=== PATIENT | male | born 1985 | race Caucasian/White ===

== ENCOUNTER 2016-05-24 14:54 | Emergency (ER) | payer OTHER ==
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
[2016-05-24 17:06] VITALS: BP 120/93
== END 2016-05-24 17:06 | disposition home or self-care (01) ==
LOC: ER 14:54
DX: M54.89 Other dorsalgia (principal); M54.2 Cervicalgia; V49.60XA Unspecified car occupant injured in collision with unspecified motor vehicles in traffic accident, initial encounter; F17.210 Nicotine dependence, cigarettes, uncomplicated; Z86.14 Personal history of Methicillin resistant Staphylococcus aureus infection; Z21 Asymptomatic human immunodeficiency virus [HIV] infection status; Z88.0 Allergy status to penicillin
CPT/HCPCS: 99283

== ENCOUNTER 2016-06-10 17:18 | Emergency (ER) | payer OTHER ==
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
[2016-06-10] MEDS ORDERED: NORMAL SALINE 1000 ML 1,000 ML IV ONE (17:40)
[2016-06-10] MEDS ORDERED: ONDANSETRON HCL INJ/PF 4 MG/2 ML SDV IV ONE (17:48)
[2016-06-10] MEDS ORDERED: HYDROMORPHONE HCL INJ/PF 2 MG/ML AMPULE IV ONE (17:48)
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
[2016-06-10 18:10] LABS: ABSOLUTE BASOPHILS # (AUTO) 0.1 10^3/uL (0.0-0.2); ABSOLUTE EOSINOPHILS # (AUTO) 0.1 10^3/uL (0.0-0.6); ABSOLUTE LYMPHOCYTES (AUTO) 1.3 10^3/uL (0.5-4.7); ABSOLUTE MONOCYTES (AUTO) 0.8 10^3/uL (0.1-1.4); ABSOLUTE NEUT (AUTO) 7.9 10^3/uL (1.7-8.2); BASOPHILS % (AUTO) 0.7 % (0-2); EOSINOPHILS % (AUTO) 0.9 % (0-6); HEMATOCRIT 45.5 % (37.9-51.0); HGB HCT DIFFERENCE 2.5; MEAN CORPUSCULAR HEMOGLOBIN 30.2 pg (27.0-33.4); MEAN CORPUSCULAR HGB CONC 35.1 g/dL (32.0-36.0); MEAN CORPUSCULAR VOLUME 86 fl (80-97); MONOCYTES % (AUTO) 7.5 % (3-13); RED BLOOD COUNT 5.29 10^6/uL (4.35-5.55); RED CELL DISTRIBUTION WIDTH 13.5 % (11.5-14.0); SEGMENTED NEUTROPHILS % (AUTO) 77.9 % (42-78); WHITE BLOOD COUNT 10.1 10^3/uL (4.0-10.5)
[2016-06-10 18:26] LABS: ALANINE AMINOTRANSFERASE 108 U/L (21-72); ALBUMIN 4.5 g/dL (3.5-5.0); ALCOHOL < 10 mg/dL (NONE DETECTED); ALKALINE PHOSPHATASE 108 U/L (38-126); ANION GAP 12 (5-19); ASPARTATE AMINO TRANSFERASE 87 U/L (17-59); BILIRUBIN,TOTAL 1.4 mg/dL (0.2-1.3); BLOOD UREA NITROGEN 15 mg/dL (7-20); CALCIUM 9.9 mg/dL (8.4-10.2); CARBON DIOXIDE 26 mmol/L (22-30); CHLORIDE 104 mmol/L (98-107); CREATININE RESULT 1.05 mg/dL (0.52-1.25); GLUCOSE 111 mg/dL (75-110); TOTAL PROTEIN 7.5 g/dL (6.3-8.2)
[2016-06-10] MEDS ORDERED: NORMAL SALINE 1000 ML 1,000 ML IV PRN (19:09)
[2016-06-10] MEDS ORDERED: NORMAL SALINE 250 ML IV PRN ×2 (19:09→19:53)
[2016-06-10] MEDS ORDERED: PNEUMOCOCCAL 23-VAL P-SAC VAC 0.5 ML VIAL IM ONE (19:33)
[2016-06-10] MEDS ORDERED: HYDROMORPHONE HCL INJ/PF 2 MG/ML AMPULE ONE (19:58)
[2016-06-10] MEDS ORDERED: FENTANYL CITRATE INJ/PF 250 MCG/5 ML AMPULE ONE (19:58)
[2016-06-10] MEDS ORDERED: EPHEDRINE SULFATE INJ 50 MG/1 ML AMPULE ONE (19:58)
[2016-06-10] MEDS ORDERED: ONDANSETRON HCL INJ/PF 4 MG/2 ML SDV ONE (19:59)
[2016-06-10] MEDS ORDERED: PROPOFOL INJ 200 MG/20 ML VIAL IV ONE (19:59)
[2016-06-10] MEDS ORDERED: MENINGOCOCCAL VAC A,C,Y,W-135 DIP/PF 0.5 ML VIAL IM ONE (20:30)
[2016-06-10 21:42] VITALS: BP 126/76
[2016-06-10] MEDS ORDERED: MIDAZOLAM 2 MG/2 ML INJ ONE (21:42)
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
--- NOTE | 2016-06-11 08:06 | EKG REPORT ---
SEVERITY:- ABNORMAL ECG - SINUS TACHYCARDIA PAIRED VENTRICULAR PREMATURE COMPLEXES RIGHT AXIS DEVIATION PROBABLE INFERIOR INFARCT, AGE INDETERMINATE BORDERLINE PROLONGED QT INTERVAL : Confirmed by: Oleg Osuna MD 11-Jun-2016 08:06:28
== END 2016-06-10 22:56 | disposition short-term general hospital (02) ==
LOC: ER 17:18 → EH 19:39 → UNDOADMIN 19:39 → UNDODISIN 22:56
PROC: 07B Lymphatic and Hemic Systems, Excision (ICD-10-PCS; principal; 2016-06-10 21:30)
DX: T79.4XXA Traumatic shock, initial encounter (principal); S36.039A Unspecified laceration of spleen, initial encounter; B20 Human immunodeficiency virus [HIV] disease; R16.1 Splenomegaly, not elsewhere classified; R07.81 Pleurodynia; M25.519 Pain in unspecified shoulder; R51 Headache; V49.40XA Driver injured in collision with unspecified motor vehicles in traffic accident, initial encounter
CPT/HCPCS: 93005; 99291; 96361; 96374; 96375; 86900; 86901; 36415; 36430; 86850; 80307; 85025; 80053; 86920; 88305 ×2; 71010; 73030; 70450; 71260; 72125; 74177; 93010; 38120; L0120; P9017; P9016; P9035; J2250; J1170; J2405; J7030; J2704; 00790; J3010; J3490

== ENCOUNTER 2016-06-21 01:14 | Emergency (ER) | payer SELFPAY ==
[2016-06-21 02:09] LABS: ABSOLUTE BASOPHILS # (AUTO) 0.2 10^3/uL (0.0-0.2); ABSOLUTE EOSINOPHILS # (AUTO) 0.7 10^3/uL (0.0-0.6); ABSOLUTE LYMPHOCYTES (AUTO) 3.3 10^3/uL (0.5-4.7); ABSOLUTE MONOCYTES (AUTO) 1.4 10^3/uL (0.1-1.4); ABSOLUTE NEUT (AUTO) 9.6 10^3/uL (1.7-8.2); BASOPHILS % (AUTO) 1.3 % (0-2); EOSINOPHILS % (AUTO) 4.7 % (0-6); HEMATOCRIT 37.2 % (37.9-51.0); HEMOGLOBIN 12.5 g/dL (13.5-17.0); HGB HCT DIFFERENCE 0.3; LYMPHOCYTES % (AUTO) 21.9 % (13-45); MEAN CORPUSCULAR HEMOGLOBIN 29.1 pg (27.0-33.4); MEAN CORPUSCULAR HGB CONC 33.5 g/dL (32.0-36.0); MEAN CORPUSCULAR VOLUME 87 fl (80-97); RED BLOOD COUNT 4.28 10^6/uL (4.35-5.55); RED CELL DISTRIBUTION WIDTH 13.9 % (11.5-14.0); SEGMENTED NEUTROPHILS % (AUTO) 63.1 % (42-78); WHITE BLOOD COUNT 15.2 10^3/uL (4.0-10.5)
[2016-06-21 02:10] LABS: ALANINE AMINOTRANSFERASE 57 U/L (21-72); ALBUMIN 3.9 g/dL (3.5-5.0); ALKALINE PHOSPHATASE 101 U/L (38-126); ANION GAP 11 (5-19); ASPARTATE AMINO TRANSFERASE 57 U/L (17-59); BILIRUBIN,TOTAL 0.3 mg/dL (0.2-1.3); BLOOD UREA NITROGEN 10 mg/dL (7-20); CALCIUM 10.4 mg/dL (8.4-10.2); CARBON DIOXIDE 31 mmol/L (22-30); CHLORIDE 100 mmol/L (98-107); CREATININE RESULT 0.87 mg/dL (0.52-1.25); GLUCOSE 100 mg/dL (75-110); POTASSIUM 4.5 mmol/L (3.6-5.0); SODIUM 141.8 mmol/L (137-145); TOTAL PROTEIN 7.4 g/dL (6.3-8.2)
[2016-06-21 02:12] LABS: ALCOHOL < 10 mg/dL (NONE DETECTED)
[2016-06-21] MEDS ORDERED: NORMAL SALINE 1000 ML 1,000 ML IV PRN (02:23)
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
[2016-06-21 08:22] LABS: APPEARANCE,URINE CLEAR; BILIRUBIN,URINE NEGATIVE (NEGATIVE); GLUCOSE, URINE NEGATIVE (NEGATIVE); KETONES,URINE NEGATIVE (NEGATIVE); LEUKOCYTE ESTERASE,URINE NEGATIVE (NEGATIVE); NITRITE,URINE NEGATIVE (NEGATIVE); PROTEIN,URINE NEGATIVE (NEGATIVE); URINE SPECIFIC GRAVITY 1.009; UROBILINOGEN,URINE NEGATIVE mg/dL (<2.0)
[2016-06-21 08:39] LABS: URINE BARBITURATES SCREEN NEGATIVE; URINE METHADONE SCREEN UNCONFIRMED POSITIVE; URINE OPIATES LOW UNCONFIRMED POSITIVE; URINE PHENCYCLIDINE SCREEN NEGATIVE
--- NOTE | 2016-06-21 10:06 | ER Document Report ---
Doctor's Note Notes: 06/21/16 10:03 The patient was seen and evaluated by the psychiatric service here this morning. The patient will be discharged to home. A friend of his is coming to get him. He is to follow-up with [facility] neuropsychiatric this week with his regular provider there.
[2016-06-21 10:20] VITALS: BP 137/78
--- NOTE | 2016-06-21 10:36 | EKG REPORT ---
SEVERITY:- BORDERLINE ECG - SINUS TACHYCARDIA CONSIDER RIGHT VENTRICULAR HYPERTROPHY : Confirmed by: Rashel Holland 21-Jun-2016 10:35:52
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
== END 2016-06-21 10:18 | disposition home or self-care (01) ==
LOC: ER 01:14
DX: R45.851 Suicidal ideations (principal); R10.9 Unspecified abdominal pain; F32.9 Major depressive disorder, single episode, unspecified; E03.9 Hypothyroidism, unspecified; Z21 Asymptomatic human immunodeficiency virus [HIV] infection status; Z88.0 Allergy status to penicillin; Z88.6 Allergy status to analgesic agent; Z86.14 Personal history of Methicillin resistant Staphylococcus aureus infection
CPT/HCPCS: 36415; 80053; 80307; 81001; 85025; 93005; 93010; 99285

== ENCOUNTER 2016-10-05 17:34 | Emergency (ER) | payer SELFPAY ==
[2016-10-05] MEDS ORDERED: ACETAMINOPHEN WITH CODEINE #3 TABLET PO ONE (18:28)
[2016-10-05] MEDS ORDERED: FLUCONAZOLE 100 MG TABLET PO ONE (19:17)
--- NOTE | 2016-10-05 19:18 | ER Document Report ---
HPI - HPI Patient complains to provider of: sore throat Pain Level: 5 Context: Patient is a 31-year-old male who has a history of HIV positive not on medications. Patient states that his counts have been good. Follows at [facility]. Complaining of sore throat today. Patient states she has a history of strep and thrush. Patient states that in the past he taken fluconazole which gives him mild vertigo but otherwise denies any other issues with it - REPRODUCTIVE Reproductive: DENIES: : - DERM Skin Color: Normal Past Medical History - Social History Smoking Status: Current Every Day Smoker Family History: Malignancy - Breast cancer and prostate cancer, Other - Anxiety Patient has suicidal ideation: No Patient has homicidal ideation: No Endocrine Medical History: Reports: Hx Hypothyroidism Renal/ Medical History: Denies: Hx Peritoneal Dialysis Skin Medical History: Reports Hx MRSA Psychiatric Medical History: Reports: Hx Anxiety, Hx Attention Deficit Hyperactivity Disorder, Hx Depression Infectious Medical History: Reports: Hx HIV Past Surgical History: Reports: Hx Abdominal Surgery - peritonitis, Hx Appendectomy, Hx Oral Surgery - Immunizations Immunizations up to date: Yes Hx Diphtheria, Pertussis, Tetanus Vaccination: Yes Vertical Provider Document - CONSTITUTIONAL Agree With Documented VS: Yes Exam Limitations: No Limitations General Appearance: WD/WN, No Apparent Distress - INFECTION CONTROL TRAVEL OUTSIDE OF THE [place] IN LAST 30 DAYS: No - HEENT HEENT: Atraumatic, Normocephalic. negative: Pharyngeal Exudate, Pharyngeal Tenderness, Pharyngeal Erythema, Tympanic Membrane Red, Tympanic Membrane Bulging Notes: Uvula midline. Airway patent. No evidence of tonsillar enlargement, peritonsillar abscess, retropharyngeal abscess. uvula with white substance consistent with thrush - RESPIRATORY O2 Sat by Pulse Oximetry: 97 Course - Re-evaluation Re-evalutation: 10/05/16 19:50 rapid strep negative Will treat patient for thrush instruction to follow-up with [facility] this week - Vital Signs Vital signs: Temp Pulse Resp BP Pulse Ox 98.1 F 100 18 146/92 H 97 10/05/16 17:37 10/05/16 17:37 10/05/16 17:37 10/05/16 17:37 10/05/16 17:37 Discharge - Discharge Clinical Impression: Thrush Condition: Good Disposition: HOME, SELF-CARE Instructions: Oral Thrush ([facility]) Additional Instructions: Please follow up with [facility] regarding your visit Prescriptions: Fluconazole [Diflucan] 100 mg PO DAILY #13 tablet
[2016-10-05 19:37] VITALS: BP 135/90
== END 2016-10-05 19:37 | disposition home or self-care (01) ==
LOC: ER 17:34
DX: B37.0 Candidal stomatitis (principal); F17.200 Nicotine dependence, unspecified, uncomplicated; Z86.14 Personal history of Methicillin resistant Staphylococcus aureus infection; Z21 Asymptomatic human immunodeficiency virus [HIV] infection status
CPT/HCPCS: 87070; 87880; 99283

== ENCOUNTER 2016-10-21 18:42 | Emergency (ER) | payer SELFPAY ==
[2016-10-21 19:23] VITALS: BP 123/77
--- NOTE | 2016-10-21 20:21 | RADIOLOGY REPORT (SQ) ---
EXAM DESCRIPTION: FOOT RIGHT COMPLETE COMPLETED DATE/TIME: 10/21/2016 8:12 pm REASON FOR STUDY: pain COMPARISON: None. NUMBER OF VIEWS: Three views. TECHNIQUE: AP, lateral and oblique radiographic images acquired of the right foot. LIMITATIONS: None. FINDINGS: MINERALIZATION: Normal. BONES: No acute fracture or dislocation. No worrisome bone lesions. JOINTS: No effusions. SOFT TISSUES: No soft tissue swelling. No foreign body. OTHER: No other significant finding. IMPRESSION: NEGATIVE STUDY OF THE RIGHT FOOT. NO RADIOGRAPHIC EVIDENCE OF ACUTE INJURY. TECHNICAL DOCUMENTATION: JOB ID: [id number] [employer]- All Rights Reserved
--- NOTE | 2016-10-21 20:22 | ER Document Report ---
HPI - HPI Patient complains to provider of: Right foot pain Onset: Other Onset/Duration: Intermittent Quality of pain: Achy Severity: Moderate Pain Level: 4 Context: Patient complains of pain to bottom of right foot for the past 1-2 months. Has gotten worse the last few days. Also has bites to right upper foot for the past few days, which he has been scratching. Denies recent injury to foot. Associated Symptoms: None Exacerbated by: Walking Relieved by: Remaining still Similar symptoms previously: Yes Recently seen / treated by doctor: No - ROS ROS below otherwise negative: Yes Systems Reviewed and Negative: Yes All other systems reviewed and negative - CONSTITUTIONAL Constitutional: DENIES: Fever - EENT EENT: DENIES: Congestion - NEURO Neurology: DENIES: Headache - CARDIOVASCULAR Cardiovascular: DENIES: Chest pain - RESPIRATORY Respiratory: DENIES: Trouble Breathing - GASTROINTESTINAL Gastrointestinal: DENIES: Abdominal Pain - URINARY Urinary: DENIES: Dysuria - MUSCULOSKELETAL Musculoskeletal: REPORTS: Extremity pain - right foot - DERM Skin Color: Normal, [place] Skin Problems: Rash - right upper foot Past Medical History - General Information source: Patient - Social History Smoking Status: Never Smoker Frequency of alcohol use: None Drug Abuse: None Lives with: Family Family History: Malignancy - Breast cancer and prostate cancer, Other - Anxiety Endocrine Medical History: Reports: Hx Hypothyroidism Musculoskeltal Medical History: Reports Other - neuropathy Skin Medical History: Reports Hx MRSA Psychiatric Medical History: Reports: Hx Anxiety, Hx Attention Deficit Hyperactivity Disorder, Hx Depression Infectious Medical History: Reports: Hx HIV Past Surgical History: Reports: Hx Abdominal Surgery - peritonitis, Hx Appendectomy, Hx Oral Surgery - Immunizations Immunizations up to date: Yes Hx Diphtheria, Pertussis, Tetanus Vaccination: Yes Vertical Provider Document - CONSTITUTIONAL Agree With Documented VS: Yes General Appearance: WD/WN, No Apparent Distress Notes: Ambulates to room without difficulty - INFECTION CONTROL TRAVEL OUTSIDE OF THE [place] IN LAST 30 DAYS: No - HEENT HEENT: Atraumatic, Normocephalic - RESPIRATORY Respiratory: Breath Sounds Normal, No Respiratory Distress O2 Sat by Pulse Oximetry: 100 - CARDIOVASCULAR Cardiovascular: Regular Rate, Regular Rhythm - MUSCULOSKELETAL/EXTREMETIES Musculoskeletal/Extremeties: MAEW, FROM, Tender - Bottom of right foot from heel to sole of foot, No Edema. negative: Eccymosis - NEURO Level of Consciousness: Awake, Alert, Appropriate - DERM Integumentary: Warm, Dry, Rash - excoriated skin to right upper foot from scratching Course - Re-evaluation Re-evalutation: 10/21/16 20:22 X-rays negative and discussed with patient - Vital Signs Vital signs: Temp Pulse Resp BP Pulse Ox 98.5 F 121 H 17 123/77 100 10/21/16 19:21 10/21/16 19:21 10/21/16 19:21 10/21/16 19:21 10/21/16 19:21 Discharge - Discharge Clinical Impression: Right foot pain, Rash Condition: Good Disposition: HOME, SELF-CARE Additional Instructions: X-rays were normal tonight. OTC ibuprofen as needed for pain Take other meds as prescribed Follow-up with your doctor Thursday for recheck if not any better OTC Benadryl for itching return As needed Prescriptions: Cephalexin [Cephalexin 500 MG Capsule] 1 cap PO QID #20 capsule Triamcinolone Acetonide 15 gm TP BID #1
== END 2016-10-21 20:43 | disposition home or self-care (01) ==
LOC: ER 18:42
DX: M79.671 Pain in right foot (principal); R21 Rash and other nonspecific skin eruption; Z86.14 Personal history of Methicillin resistant Staphylococcus aureus infection; Z21 Asymptomatic human immunodeficiency virus [HIV] infection status
CPT/HCPCS: 99283